=== PATIENT | male | born 1945 | race Caucasian/White ===

== ENCOUNTER 2024-02-27 09:43 | Emergency (ER) | payer OTHER ==
[~2024-02-27] VITALS: Ht 165.1 cm; Wt 61.3 kg
[2024-02-27 10:09] VITALS: TEMP 98.3
[2024-02-27 10:11] VITALS: PULSE 83; RESP 14; O2SAT 96
[2024-02-27] MEDS: ACETAMINOPHEN 325 MG TAB PO ONE (10:43)
[2024-02-27] MEDS: KETOROLAC TROMETH 30 MG/ML 1ML VIAL IV ONE (10:44)
[2024-02-27] MEDS: SODIUM CHLORIDE 0.9% 1,000 ML IV ONE (10:44)
[2024-02-27] MEDS: MORPHINE SULFATE 4 MG/ML SYR/VIAL IV ONE (10:44)
[2024-02-27 11:17] LABS: Basophils # (auto) 0 10 ^3/uL (0-0.2); Basophils % (auto) 0.4 % (0.0-2.0); Eosinophils # (auto) 0.2 10 ^3/uL (0-0.8); Eosinophils % (auto) 2.9 % (0.0-7.0); Hemoglobin 11.2 g/dL (13.5-17.5); Lymphocytes # (auto) 0.8 10 ^3/uL (0.4-5.4); Lymphocytes % (auto) 10.8 % (10.0-50.0); Mean Corpuscular Hemoglobin 31.5 pg (28.0-32.0); Mean Corpuscular Volume 92.6 fL (80.0-100.0); Monocytes # (auto) 0.8 10 ^3/uL (0-1.3); Neutrophils # (auto) 5.6 10 ^3/uL (1.6-8.6); Neutrophils % (auto) 74.9 % (37.0-80.0); Nucleated Red Blood Cells % 0.1 %; Red Blood Cells 3.56 10^6/uL (4.5-5.90); Red Cell Distribution Width 16.9 % (11.8-14.3); White Blood Cell 7.4 10^3/uL (4.4-10.8)
[2024-02-27 11:30] LABS: Alanine Aminotransferase 22 U/L (7-40); Albumin 3.7 g/dL (3.2-4.8); Alkaline Phosphatase 137 U/L (46-116); Anion Gap 5 (5-15); Aspartate Aminotransferase 27 U/L (13-40); BUN/Creatinine Ratio 26.4 (10.0-20.0); Blood Urea Nitrogen 42 mg/dL (9-23); Calcium 9.5 mg/dL (8.5-10.1); Carbon Dioxide 21 mmol/L (20-30); Chloride 111 mmol/L (98-107); Glucose 111 mg/dL (74-106); Sodium 137 mmol/L (136-145)
[2024-02-27 11:31] LABS: Bilirubin, Total 0.5 mg/dL (0.2-1.0); Total Protein 6.2 g/dL (5.7-8.2)
[2024-02-27 11:59] LABS: Urine Bacteria FEW /hpf (None Seen); Urine Blood Negative /uL (Negative); Urine Clarity Clear (Clear); Urine Color Yellow (Yellow); Urine Protein, UAD 1+ (Negative); Urine Sperm PRESENT /hpf (None Seen); Urine Urobilinogen Normal (Negative); Urine WBC 1 /hpf (0 - 3)
[2024-02-27] MEDS ORDERED: POLY335015 PO (13:42)
[2024-02-27] MEDS ORDERED: LIDO5DIS21 TOP (13:42)
[2024-02-27] MEDS ORDERED: NALO4SPR2 (13:42)
[2024-02-27] MEDS ORDERED: HYDR-4902 PO (13:42)
[2024-02-27] MEDS: cloNIDine HCL 0.1 MG TAB PO ONE (13:46)
[2024-02-27 14:36] VITALS: BP 153/101; PULSE 95; RESP 19; O2SAT 99
== END 2024-02-27 13:47 | disposition home or self-care (01) ==
LOC: ER 09:43 → EDBD 09:43 → ER 13:47
DX: M48.54XA Collapsed vertebra, not elsewhere classified, thoracic region, initial encounter for fracture (principal); F14.90 Cocaine use, unspecified, uncomplicated; Z86.73 Personal history of transient ischemic attack (TIA), and cerebral infarction without residual deficits
CPT/HCPCS: 36415; 74176; 80053; 81001; 85025; 96361; 96374; 96375; 99285; J1885; J2270; J7030